=== PATIENT | female | born 1945 | race Caucasian/White ===

== ENCOUNTER 2018-02-07 16:34 | Emergency (ER) | payer OTHER, MEDICARE ==
[~2018-02-07] VITALS: Ht 162.6 cm; Wt 64.8 kg
[2018-02-07 17:22] LABS: APPEARANCE CLEAR ((CLEAR)); BILIRUBIN NEGATIVE; BLOOD SMALL; COLOR YELLOW ((YELLOW)); GLUCOSE (STRIP) NEGATIVE; KETONES 20; LEUKOCYTES SMALL; NITRITE NEGATIVE; PROTEIN (STRIP) 30; SPECIFIC GRAVITY 1.016 (1.000-1.030); UROBILINOGEN 0.2 MG/DL (0.2-1.0)
[2018-02-07 17:27] LABS: BACTERIA 3+ /HPF; EPITHELIAL CELLS RARE /HPF; HYALINE CASTS 0-5 /LPF; MUCUS TRACE /LPF; UCUL ADDED? YES; WHITE BLOOD CELLS 20-30 /HPF (0-5)
[2018-02-07 17:35] LABS: BASOPHIL (%) 0.3 % (0-1); EOSINOPHIL (%) 0 % (0-5); HEMATOCRIT 34.6 % (36.0-46.0); HEMOGLOBIN 11.5 G/DL (11.9-15.5); IMMATURE GRANULOCYTE (%) 0.1 % (0.0-0.7); LYMPHOCYTE (%) 7.8 % (15-42); LYMPHOCYTE COUNT 0.5 K/uL (1.0-2.8); MCH 29.9 PG (29.0-34.0); MCHC 33.2 G/DL (30.0-36.0); MCV 90.1 FL (83-99); MONOCYTE (%) 10.3 % (3-12); MONOCYTE COUNT 0.7 K/uL (0-0.8); NEUTROPHIL (%) 81.5 % (45-76); NEUTROPHIL COUNT 5.6 K/uL (1.8-6.4); PLATELET COUNT 144 K/uL (156-360); RBC DIS.WIDTH-CV 13.9 % (11.8-14.6); RED BLOOD COUNT 3.84 M/uL (3.80-5.20); WHITE BLOOD COUNT 6.8 K/uL (4.1-10.2)
[2018-02-07 17:50] LABS: ALBUMIN 3.9 g/dL (3.2-4.8); CHLORIDE 102 mEq/L (99-109); POTASSIUM 3.8 mEq/L (3.7-5.4); SODIUM 136 mEq/L (136-147)
[2018-02-07 17:51] LABS: MAGNESIUM 1.9 mg/dL (1.3-2.7)
[2018-02-07 17:52] LABS: GLUCOSE 105 mg/dL (70-99); TOTAL PROTEIN 6.6 g/dL (6.4-8.3)
[2018-02-07 17:54] LABS: TOTAL BILIRUBIN 2.1 mg/dL (0.0-1.0)
[2018-02-07 17:56] LABS: ALKALINE PHOSPHATASE 86 IU/L (3-129); CREATININE 0.7 mg/dL (0.6-1.3); GFR ESTIMATE (CALCULATED) > 59 mL/min/
[2018-02-07 17:57] LABS: UREA NITROGEN (BUN) 12 mg/dL (9-23)
[2018-02-07 17:58] LABS: AST (GOT) 15 IU/L (2-34)
[2018-02-07 17:59] LABS: ALT (GPT) 10 IU/L (3-49)
[2018-02-07] MEDS ORDERED: CEFDINIR300 MG PO (18:21)
[2018-02-07 18:29] VITALS: BP 135/83
== END 2018-02-07 18:50 | disposition home or self-care (01) ==
LOC: EME 16:34
PROVIDERS: Emergency Medicine
DX: N39.0 Urinary tract infection, site not specified (principal); B96.20 Unspecified Escherichia coli [E. coli] as the cause of diseases classified elsewhere; Z16.11 Resistance to penicillins; Z87.440 Personal history of urinary (tract) infections; Z96.642 Presence of left artificial hip joint
CPT/HCPCS: 80053; 81003; 83605; 83735; 85025; 87077; 87086; 87186; 99281; 99284